=== PATIENT | male | born 1945 | race Caucasian/White ===

== ENCOUNTER 2016-05-20 11:14 | Emergency (ER) | payer OTHER, MEDICARE, BC ==
--- NOTE | ~2016-05-20 | US84 ---
[id number] [address] [address] [id number] MR#: [id number] Acc #: [id number] NAME: SILVIA PICKARD : 1945 SEX: M STUDY DATE/TIME: 05/20/2016 11:52 UNIT: SED ROOM: STUDY DESCRIPTION: US LE Veins Complete Lenny Stdy Attending Physician: Aisha Bartlett A.P.R.N. Ordering Physician: Aisha Altman A.P.R.N. Primary Care Physician: No Primary Care Physician MEDICAL IMAGING REPORT This report is preliminary unless electronic signature is present. EXAM Bilateral leg vein Doppler, 05/20. INDICATIONS Fell 10 days ago. Swelling in the legs that started 3 days ago. TECHNIQUE Venous ultrasound examination of both lower extremities was performed using grayscale, spectral Doppler and color flow Doppler imaging. FINDINGS The examination is negative. There is no evidence of deep venous thrombus from the groin to the lower calf bilaterally. Visualized greater saphenous veins are also patent. IMPRESSION Negative examination. No evidence of lower extremity DVT. Dictated by... Chidi Burrell Jr., M.D. THIS IS AN ELECTRONICALLY VERIFIED REPORT Chidi Burrell Jr., M.D. at 05/21/2016 8:09 AM DEJA/jarad TD: 05/20/2016 16:22 JOB #: [id number] MEDICAL IMAGING REPORT Page 1 of 1
--- NOTE | ~2016-05-20 | CR20 ---
[facility] A Service of [facility] RADIOLOGY TEXT RESULTS PATIENT: SILVIA PICKARD LOCATION: SED : 47 UNIT #: [id number] AGE: [address]: Aisha Bartlett APRN SEX: M ORDER DR: [id number] [place] [address] [id number] MR#: [id number] Acc #: [id number] NAME: SILVIA PICKARD : 1945 SEX: M STUDY DATE/TIME: 05/20/2016 12:37 UNIT: SED ROOM: STUDY DESCRIPTION: CR Ankle Min 3 Views Lt Attending Physician: Aisha Bartlett A.P.R.N. Ordering Physician: Aisha Altman A.P.R.N. Primary Care Physician: No Primary Care Physician MEDICAL IMAGING REPORT This report is preliminary unless electronic signature is present. EXAM Left ankle 05/20 INDICATIONS Ankle pain after a fall 10 days ago. Bruising and swelling on both sides. FINDINGS 3 views of the left ankle were obtained. There is swelling on both sides of the ankle. The mortise is intact. No acute fractures. Posterior and plantar calcaneal spurring are incidentally noted. IMPRESSION Soft tissue swelling without acute fracture or malalignment. Dictated by... Chidi Burrell Jr., M.D. THIS IS AN ELECTRONICALLY VERIFIED REPORT Chidi Burrell Jr., M.D. at 05/21/2016 8:10 AM DEJA/zion TD: 05/20/2016 16:36 JOB #: [id number] MEDICAL IMAGING REPORT Page 1 of 1
[~2016-05-20 11:14] MED LIST: ALEVE220 M1 PO; ALLEVE; ASPIRIN81 M2 PO; BAYER CHEWABLE81 MG PO; BYSTOLIC5 MG PO; EFFIENT10 MG PO; FLEXERIL10 M1 PO; FLEXERIL10 MG PO; FLOMAX0.4 M1 PO; LASIX20 MG PO; LIPITOR80 MG PO; LISINOPRIL PO; NAPROSYN375 MG PO; NEXIUM PO; NO HOME MEDS; OMEPRAZOLE40 M1 PO; PERCOCET 5-3251 TAB PO; PHENERGAN25 MG PO; PREDNISONE PO; ULTRAM PO; VICODIN 5/1 TAB 5/50 PO; ZEGERID40 MG/PKT PO
== END 2016-05-20 13:15 | disposition home or self-care (01) ==
LOC: SED 11:14
DX: S93.402A Sprain of unspecified ligament of left ankle, initial encounter (principal); K21.9 Gastro-esophageal reflux disease without esophagitis; I10 Essential (primary) hypertension; Z79.899 Other long term (current) drug therapy; Z23 Encounter for immunization; W18.39XA Other fall on same level, initial encounter; Y92.098 Other place in other non-institutional residence as the place of occurrence of the external cause
CPT/HCPCS: 73610; 90471; 90715; 93970; 99284

== ENCOUNTER 2016-09-12 08:11 | Emergency (ER) | payer MEDICARE, BC ==
[2016-09-12 09:05] LABS: BASOPHIL% 0.5 % (0-2.5); EOSINOPHIL% 0.3 % (0.0-7.0); HEMATOCRIT 43.5 % (38.0-50.0); HEMOGLOBIN 15.1 gm/dL (13.0-16.0); LYMPHOCYTE# 1.3 X10e3 (1.0-3.5); LYMPHOCYTE% 13.8 % (17.0-45.0); MEAN CELL VOLUME 96.5 FL (83-96); MEAN CORPUSCULAR HEMOGLOBIN 33.5 PG (28-34); MEAN CORPUSCULAR HGB CONC 34.7 g/dL (30-36); MEAN PLATELET VOLUME 8.3 FL (6.5-11.5); MONOCYTE# 0.7 X10e3 (0-1.0); MONOCYTE% 7.1 % (3.0-12.0); NEUTROPHIL# 7.2 X10e3 (1.5-7.1); NEUTROPHIL% 78.3 % (40-75); PLATELET COUNT 294 X10e3 (140-420); RED BLOOD COUNT 4.51 X10e (3.90-5.60); RED CELL DISTRIBUTION WIDTH 14.3 % (11.0-15.5); WHITE BLOOD COUNT 9.2 X10e3 (4.0-10.5)
[2016-09-12 09:06] LABS: DIFF IND NO
[2016-09-12 09:22] LABS: ALBUMIN SERUM 3.3 g/dL (3.5-5.0); BILIRUBIN, DIRECT 0.2 mg/dL (0.0-0.2); BILIRUBIN,TOTAL 1.2 mg/dL (0.2-2.0); BUN/CREATININE RATIO 17.27; CALCIUM SERUM 8.4 mg/dL (8.4-10.2); CREATININE SERUM 1.1 mg/dL (0.6-1.4); GLOM FILT RATE Estimated 67.7 mL/min (>60); POTASSIUM 3.2 mmol/L (3.5-5.1); PROTEIN TOTAL SERUM 7.7 g/dL (6.0-8.3)
[2016-09-12 09:43] LABS: URINE SOURCE CLEAN CATCH
[2016-09-12 09:49] LABS: URINE APPEARANCE CLEAR; URINE BILIRUBIN NEG (NEG); URINE BLOOD NEG (NEG); URINE COLOR YELLOW; URINE GLUCOSE NEG (NORM); URINE KETONE NEG (NEG); URINE LEUKOCYTE ESTERASE NEG (NEG); URINE NITRATE NEG (NEG); URINE PH 5.5 (5-8); URINE PROTEIN TRACE (NEG); URINE SPECIFIC GRAVITY 1.025 (1.003-1.035); URINE UROBILINOGEN 0.2 MG/DL (NORM)
[2016-09-12 09:51] LABS: MICRO INDICATED? YES
[2016-09-12 09:58] LABS: CULTURE INDICATED? YES; URINE BACTERIA NEG (NEG); URINE RBC 0-2 /[HPF] (0-2)
[2016-09-12 09:59] LABS: URINE MUCUS PRESENT; URINE SQUAMOUS EPITHELIAL CELL FEW /[HPF]; URINE WHITE BLOOD CELL CAST 0-2 /[HPF]
== END 2016-09-12 10:37 | disposition home or self-care (01) ==
LOC: SED 08:11
PROVIDERS: Emergency Medicine
DX: E87.6 Hypokalemia (principal); R19.7 Diarrhea, unspecified; R10.9 Unspecified abdominal pain; K21.9 Gastro-esophageal reflux disease without esophagitis; Z79.899 Other long term (current) drug therapy
CPT/HCPCS: 36415; 80048; 80076; 81003; 85025; 87086; 96374; 96375; 99284; J2405

== ENCOUNTER → 2016-09-15 | Outpatient (CLI) | payer MEDICARE, BC | END | disposition home or self-care (01) | LOC: CLAB 15:59 | DX: R19.7 Diarrhea, unspecified (principal) | CPT/HCPCS: 87493 ==